=== PATIENT | male | born 1955 | race Caucasian/White ===

== ENCOUNTER 2023-09-10 14:31 | Outpatient (CLI) | payer OTHER, SELFPAY ==
--- NOTE | 2023-09-10 15:00 | CRLHL7_ITS ---
For Patients: As a result of the Century Cures Act, medical imaging exams and procedure reports are released immediately into your electronic medical record. You may view this report before your referring provider. If you have questions, please contact your health care provider. DXA BONE MINERAL DENSITY STUDY Reason for exam: Baseline study for monitoring for osteoporosis. Current height (in): 71. Weight (lb): 247.0 Menopause age: N/A Ethnicity: White. 1. Have you had a previous hip or vertebral fracture? No. 2. Have you had any fractures during your adult life which did not result from significant trauma (e.g., auto accident)? No. 3. Did either of your parents have a hip fracture? No. 4. Do you smoke? No. 5. Have you ever taken Glucocorticoids? No. 6. Do you have rheumatoid arthritis? No. 7. Do you have secondary osteoporosis? No. 8. Do you drink 3 or more alcoholic drinks per day? No. 9. Are you being treated for osteoporosis? No. 10. Have you ever taken any of the following medications: Actonel, Evista, Fosamax, Miacalcin, Reclast, Boniva, Forteo, HRT (i.e., estrogen/hormone therapy), Protelos, Prolia, Vitamin D, Calcium, other ??? please specify. ANSWER: Yes, vitamin D. 11. Do you have any of the following medical conditions: Anorexia or bulimia, asthma or emphysema, end stage renal disease, hyperparathyroidism, any seizure disorders, cancer, inflammatory bowel diseases, hysterectomy, other ??? please specify. ANSWER: Yes, cancer. 12. What was your maximum height (inches)? 71. 13. Do you perform weight bearing exercise regularly? No. 14. Do you regularly consume dairy products? Yes. 15. Do you drink caffeinated beverages? Yes. TECHNIQUE: Bone mineral density study was performed using the [email or web address]. FINDINGS: The results of the study expressed as bone mineral density (BMD) are as follows: Lumbar spine L1 to L4: BMD: 1.249 g/cm2. T-score: 1.4. Z-score: 2.3 Neck Left: BMD: 0.870 g/cm2. T-score: -0.4. Z-score: 0.7 Right: BMD: 0.814 g/cm2. T-score: -0.9. Z-score: 0.3 Total Left: BMD: 1.065 g/cm2. T-score: 0.2. Z-score: 0.9 Right: BMD: 0.966 g/cm2. T-score: -0.4. Z-score: 0.2 IMPRESSION: Normal bone density. BRIEN ASHER M.D. Transcribed: 12:13 p.m. [email or web address] by: Brien Asher MD @ 09/11/2023 9:48:00 AM (Electronically Signed)
== END 2023-09-10 14:32 | disposition home or self-care (01) ==
LOC: RAD 14:34
PROVIDERS: Visit Provider Radiology Radiation Oncology
DX: Z01.89 Encounter for other specified special examinations (principal); M81.0 Age-related osteoporosis without current pathological fracture
CPT/HCPCS: 77080

== ENCOUNTER 2025-07-15 08:36 | Outpatient (CLI) | payer OTHER, SELFPAY | END 2025-07-15 08:37 | disposition home or self-care (01) | PROVIDERS: Visit Provider Family Medicine | DX: R53.1 Weakness (principal) | CPT/HCPCS: A0998 ==